=== PATIENT | female | born 1970 | race Caucasian/White ===

== ENCOUNTER → 2018-02-05 12:38 | Outpatient (CLI) | payer OTHER, SELFPAY | DX: Z12.31 Encounter for screening mammogram for malignant neoplasm of breast (principal) | CPT/HCPCS: 77063; 77067 ==

== ENCOUNTER → 2018-02-09 12:05 | Outpatient (CLI) | payer OTHER, SELFPAY | PROVIDERS: Visit Provider Nurse Practitioner Women's Health | DX: R92.2 Inconclusive mammogram (principal) | CPT/HCPCS: 76642 ==

== ENCOUNTER → 2018-08-30 13:42 | Outpatient (CLI) | payer OTHER, SELFPAY ==
--- NOTE | 2018-08-30 13:52 | BI_ITS ---
MAMMOGRAPHY - UNILATERAL DIAGNOSTIC: LEFT BREAST REASON FOR EXAM: Female, 47 years old. LT DIAG 6 MO F/U , PERTINENT HISTORY: NO FM HX , LT U/S DONE AFTER LAST MAMMO 4CM X 3.8CM X 1.1 CM CYST INCREASE IN SIZE FROM 2017 STUDY TECHNIQUE: Digital unilateral breast glen (3D mammographic acquisition) in the CC and MLO projections. 2-D mediolateral oblique (MLO) and craniocaudad (CC) views of both breasts were obtained. CAD: Full Field Digital Mammography with Computer Added Detection was performed. COMPARISON: 02/05/2018 and 09/22/2016 FINDINGS: Breast Composition: The breasts are extremely dense, which lowers the sensitivity of mammography. The previously seen nodular density in the upper outer quadrant of the left breast has increased in size. It presently measures 4.5 cm x 4 cm. A sonogram is performed and demonstrates benign appearing cyst. No other significant abnormalities are identified. BI/DIAG MAMM W/CAD, UNILAT IMPRESSION: Stable unilateral diagnostic mammogram. One year follow-up mammogram recommended. (A) ASSESSMENT CATEGORY: BIRADS Category 2: Benign. A letter regarding these results will be sent to the patient by the facility within 30 days. Approximately 10% of breast cancers are not detected by mammography. A normal mammogram should not delay biopsy of a clinically suspicious abnormality. Electronically Signed: Ada Connor, at 15:39 EDT Tel , Service support ,
--- NOTE | 2018-08-30 13:53 | US_ITS ---
STUDY: ULTRASOUND BREAST - LEFT REASON FOR EXAM: Female, 47 years old. LT ABNL MAMM FOLLOW UP PREV US TECHNIQUE: Axial and longitudinal images of the LEFT breast were performed with a high resolution ultrasound transducer. COMPARISON: None. FINDINGS: LEFT Breast: There is a lesion #1 in the upper outer quadrant. The lesion measures 3.9 x 4.5 x 1 cm in size. Clock notation: 3 o'clock position. Distance from nipple: 2 cm. Posterior Enhancement: Yes. Posterior Shadowing: None. Margins: Sharp and smooth. Echogenicity: Anechoic. Compression effect on Shape: Shape distortion. US/Breast Limited Unilateral IMPRESSION: Benign cyst within the left breast. ASSESSMENT CATEGORY: BIRADS Category 2: Benign. A letter regarding these results will be sent to the patient by the facility within 30 days. Electronically Signed: Ada Connor, at 16:28 EDT Tel , Service support ,
== END ==
PROVIDERS: Referring Provider Nurse Practitioner Women's Health; Visit Provider Nurse Practitioner Women's Health
DX: N63.20 Unspecified lump in the left breast, unspecified quadrant (principal)
CPT/HCPCS: 76642; 77061; 77065; G0279